=== PATIENT | female | born 1960 | race Caucasian/White ===

== ENCOUNTER 2025-01-23 12:42 | Outpatient (AMB) | payer OTHER, SELFPAY ==
--- NOTE | 2025-01-23 13:19 | MHC.PC.OV ---
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 On latuda, lamictal. Ongoing nausea no change in frequency. Takes tums as needed. Denies heartburn, reflux. No change in bowels Colonoscopy: Declines colonoscopy Mammo: says a little overdue Follows with Dr Karthik GEE CONSTITUTIONAL: Denies weight loss, fever and chills. HEENT: Denies changes in vision and hearing. RESPIRATORY: Denies SOB and cough. CV: Denies palpitations and CP GI: Denies abdominal pain, nausea, vomiting and diarrhea. : Denies dysuria and urinary frequency. MSK: Denies new myalgia and joint pain. SKIN: Denies rash and pruritus. NEUROLOGICAL: Denies headache PSYCHIATRIC: Denies recent changes in mood. PHYSICAL EXAM: GENERAL: Alert and oriented x 3. NAD EYES: EOMI. Anicteric. HENT: Moist mucous membranes. No scleral icterus. No cervical lymphadenopathy. LUNGS: Clear to auscultation bilaterally. CARDIOVASCULAR: Regular rate and rhythm. No murmur. No JVD. ABDOMEN: Soft, non-tender +bs EXTREMITIES: No edema. Non-tender. SKIN: No rashes or lesions. Warm. NEUROLOGIC: No focal neurological deficits. CN II-XII grossly intact PSYCHIATRIC: Cooperative. 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 1. Little interest or pleasure in doing things: not at all 2. Feeling down, depressed, or hopeless: not at all 3. Trouble falling or staying asleep, or sleeping too much: not at all 4. Feeling tired or having little energy: not at all 5. Poor appetite or overeating: not at all 6. Feeling bad about yourself - or that you are a failure or have let yourself or your family down: not at all 7. Trouble concentrating on things, such as reading the newspaper or watching television: not at all 8. Moving or speaking so slowly that other people could have noticed. Or the opposite - being so fidgety or restless that you have been moving around a lot more than usual: not at all 9. Thoughts that you would be better off or of hurting yourself in some way: not at all Total score: 0 Depression Screening Interpretation: Negative Depression Screening Done: Yes 34695 - PHQ-9 Billing: Yes Source: Developed by Drs. Dawson Abernathy, Rosario Mohmaud, Lencho Kerr and colleagues, with an educational javier from [employer]. Thrive Questionnaire Date Thrive assessed: 01/16/25 I am a: Patient What is your living situation today?: I have a steady place to live Within the past 12 months, did the food you bought not last and you didn't have the money to get more?: Never true Within the past 12 months, did you worry whether your food would run out before you got money to buy more?: Never true Do you have trouble paying for medicines?: No Do you have trouble getting transportation to medical appointments?: No Do you have trouble paying your heating and electricity bill?: No Do you have trouble taking care of your child, family member or friend?: No Do you have trouble with day-to-day activities such as bathing, preparing meals, shopping, managing finances, etc.?: No Are you currently unemployed and looking for a job?: No Are you interested in more education?: No Please select the resources that you would like help with: None Currently or been in a relationship where the following occur: No concerns reported THRIVE Score: 0 AUDIT C Alcohol Use Questionnaire (AUDIT-C) 1. How often do you have a drink containing alcohol?: Never Total Score: 0 NIEVES-7 AMB Questionnaire NIEVES-7 Feeling nervous, anxious, or on edge: 0 = Not at all Not being able to stop or control worryin = Not at all Worrying too much about different things: 0 = Not at all Trouble relaxin = Not at all Being so restless that it is hard to sit still: 0 = Not at all Becoming easily annoyed or irritable: 0 = Not at all Feeling afraid as if something awful might happen: 0 = Not at all Total NIEVES-7 score (0-4 normal; 5-9 mild; 10-14 moderate; 15-21 severe): 0 Source: Developed by Drs. Dawson Abernathy, Rosario Mohamud, Lencho Kerr and colleagues, with an educational javier from [employer]. Physical exam (Primary Care) Vital Signs: Last Vital Signs Pulse 57 01/23/25 13:30 Resp 12 01/23/25 13:30 BP 102/64 01/23/25 13:30 Pulse Ox 98 01/23/25 13:30 Oxygen Delivery Method Room Air 01/23/25 13:30 BMI result Body Mass Index 18.7 Tobacco/Smoking Status: Tobacco use Status e-Cigarette/Vaping Use Never Used 01/23/25 13:27 PHQ-9: PHQ-9 Score PHQ-9: Total score 0 01/23/25 13:27 Depression Screening Interpretation: Negative Thrive Assessment: Date of Thrive Assessment Date Thrive assessed 01/16/25 01/23/25 13:21 Currently or been in a relationship where the following occur: No concerns reported Coding Level of Care Code New Pt Level 4 (28213) Diagnoses Encounter to establish care Z76.89 Bipolar affective disorder, remission status unspecified F31.9 Active/Remission status: remission status unspecified Elevated cholesterol E78.00 Anxiety F41.9 Additional Codes PHQ-9 - 14258 - PHQ-9 Billing: Yes ([id number]) Assessment & Plan Assessment & Plan (1) Encounter to establish care: Code(s): Z76.89 - Persons encountering health services in other specified circumstances Category: Medical (2) Bipolar disorder: Code(s): F31.9 - Bipolar disorder, unspecified Category: Medical Qualifiers: Active/Remission status: remission status unspecified Qualified Code(s): F31.9 - Bipolar disorder, unspecified (3) Elevated cholesterol: Code(s): E78.00 - Pure hypercholesterolemia, unspecified Category: Medical (4) Anxiety: Code(s): F41.9 - Anxiety disorder, unspecified Category: Medical Plan 64 y/o to establish care past medical, surgical, social and family history reviewed Chronic medical conditions stable Labs ordered. Preventive UTD Orders: Orders Vitamin B12 and Folate 01/23/25 E78.00 - Pure hypercholesterolemia, unspecified, F31.9 - Bipolar disorder, unspecified, F41.9 - Anxiety disorder, unspecified TSH reflex Free T4 01/23/25 E78.00 - Pure hypercholesterolemia, unspecified, F31.9 - Bipolar disorder, unspecified, F41.9 - Anxiety disorder, unspecified Lyme IgG/IgM w/reflex to WB 01/23/25 E78.00 - Pure hypercholesterolemia, unspecified, F31.9 - Bipolar disorder, unspecified, F41.9 - Anxiety disorder, unspecified
[2025-01-23 13:30] VITALS: BP 102/64; PULSE 57; RESP 12; O2SAT 98; BMI 18.7
--- OUTSIDE RECORDS SUMMARY | 2025-01-23 15:17 | XMS_ITS | Referral Summary ---
Author Organization [facility] Address [address] [place] [address] Care Team Providers Care Sternman Name Role Phone Camille Goodman MD Primary Care Provider + [phone] Allergies No known active allergies Medications * This document contains information received from the source organization and may not represent a complete record from that organization. lamoTRIgine (LaMICtal) 100 mg tablet Take 200 mg by mouth 2 times a day. Active buPROPion SR (WELLBUTRIN SR) 200 mg tablet Take 250 mg by mouth once a day. Active lurasidone (LATUDA) 40 mg tablet Take 40 mg by mouth with evening meal. Active hydrOXYzine HCL (ATARAX) 25 mg tablet Take 25 mg by mouth 3 times a day as needed for itching. Active trihexyphenidyL (ARTANE) 5 mg tablet Take 5 mg by mouth 3 times a day as needed for tremors. Active melatonin 3 mg tablet Take 10 mg by mouth nightly. Active HERBAL DRUGS ORAL Take by mouth. Quiet Mind daily prn for anxiety Active docusate sodium (COLACE) 100 mg capsule Take 200 mg by mouth every night. Active docusate sodium (COLACE) 100 mg capsule Take 100 mg by mouth in the morning. Active Social History Tobacco Use Types Packs/Day Years Used Date Smoking Tobacco: Never Assessed Comments No Sex and Gender Information Value Date Recorded Sex Assigned at Not on file Legal Sex Female 7:46 PM EDT Gender Identity Not on file Sexual Orientation Not on file Last Filed Vital Signs Vital Sign Reading Time Taken Comments Blood Pressure 126/85 07/22/2022 10:50 AM EDT Pulse 81 07/22/2022 10:50 AM EDT Temperature 36.3 ??C (97.3 ??F) 07/22/2022 10:50 AM E DT Respiratory Rate 18 07/22/2022 10:50 AM EDT Oxygen Saturation 99% 07/22/2022 10:50 AM EDT Inhaled Oxygen Concentration - - Weight 56.7 kg (125 lb) 07/21/2022 8:07 PM EDT Height - - Body Mass Index - - Plan of Treatment Not on file Insurance [facility] on file Care Teams Sternman Relationship Specialty Start Date End Date Camille Goodman MD PCP - General 07/21/22
--- OUTSIDE RECORDS SUMMARY | 2025-01-23 15:17 | XMS_ITS | Clinical Summary ---
Author Organization [facility] Address [address] [place] [address] Care Team Providers Care Electric Tripper Machine Operator Name Role Phone Camille Goodman MD Primary Care Provider + [phone] Allergies No known active allergies Medications * [...] Mass Index - - Plan of Treatment Health Maintenance Due Date Last Done Comments Cervical Cancer Screening 1961 Cologuard 1961 Colon Cancer Screening 1961 Colonoscopy 1961 FOBT / Fit Test 1961 HIV Screening 1961 HPV and Pap Smear 1961 Pap Smear 1961 Sigmoidoscopy 1961 Pneumococcal Vaccine: 50+ Ye ars (1 of 1 - PCV) 2011 Zoster Vaccines (1 of 2) 2011 DTaP,Tdap,and Td Vaccines (2 - Td or Tdap) 07/23/2020 07/23/2010 COVID-19 Vaccine (1 - 2023-2 5 season) 2024 Alcohol/Substance Use Screening 10/18/2024 Influenza Vaccine (Season Ended) 2025 RSV Vaccine (60+ years old a nd patients) (1 - 1-dose 75+ series) 2036 Hepatitis B Vaccines Aged Out No long er eligible based on patient's age to complete this topic Insurance [facility] on file Care Teams Electric Tripper Machine Operator Relationship Specialty Start Date End Date Camille Goodman MD [facility] - General 07/21/22
--- OUTSIDE RECORDS SUMMARY | 2025-01-23 15:17 | XMS_ITS | Clinical Summary ---
Author Organization [address] [facility] Address [address] [place] [address] Phone Care Team Providers Care Toll Line Mechanic Name Role Phone Ursula Reed MD Primary Care Provider [phone] Allergies Active Allergy Reactions Criticality Noted Date Comments Benzocaine Rash 12/15/2021 Medications ondansetron (ZOFRAN) 4 mg tablet Take 1 Tablet by mouth every 8 hours as needed for Nausea for up to 30 doses. 4 Active buPROPion SR (WELLBUTRIN SR) 200 mg 12 hr tablet bupropion HCl SR 200 mg tablet,12 hr sustained-relea se TAKE 1 TABLET BY MOUTH EVERY DAY Active LAMOTRIGINE ORAL Take 100 mg of ampicillin by mouth. 1 PO QAM, 2 PO afternoon, 2 PO QHS Active lurasidone (LATUDA) 40 mg tablet Take by mouth. Activ e Active Problems Problem Noted Date Diagnosed Date GERD (gastroesophageal reflux disease) 2 Chronic nonintractable headache 12/15/2021 Overview (09/04/2024): Migraine, transfer notes. Immunizations Name Administration Dates Next Due Td Tetanus diptheria (Tdvax) 7yo and older 03/14 Tdap Tetanus diptheria acell ular pertussis (Boostrix; Adacel) 7yo and older 07/23/2010 Surgical History Surgery Date Site/Laterality Comments HYSTERECTOMY 03/18/2010 PROCEDURE: HISTORICAL HYSTERECTOMY; COMMENT: laparoscopic supracervical, had fibroids. ABDOMINAL SURGERY PROCEDURE: [place] UNLISTED PROCEDURE ABDOMEN PERITONEUM & OMENTUM; COMMENT: abdominoplasty OTHER SURGICAL HISTORY PROCEDURE: NV TONSILLECTOMY & ADENOIDECTOMY AGE 13/> BREAST SURGERY Bilateral PROCEDURE: [place] UNLISTED PROCEDURE BREAST; COMMENT: augmentation OTHER SURGICAL HISTORY Left PROCEDURE: HISTORY OTHER; COMMENT: Tenolysis of hand L thumb, Medical History Medical History Date Comments Chronic migraine without aura DX :Chronic migraine without aura; COMMENT: very seldom, previously seen by Dr. Ozuna Depression DX:Depression; C OMMENT: ? bipolar. On meds supporting this. Following with [facility]. Molly MAURO in [place] Urinary frequency 12/24/2021 DX:Urinary martin quency; COMMENT: and urgency Bipolar disorder DX:Bipolar diso rder (HCC) Family History Medical History Relation Name Comments Other: abdominal aneurysm Father br ain aneurysms x 3, Stroke No Known Problems Maternal Grandfather Uterine cancer Maternal Grandmother Heart attack Mother at 71, CAD , s/p CABG Other: pacemaker Paternal Grandfather No Known Problems Paternal Grandmother Relation Name Status Comments Father (Age 71) Maternal Grandfather Maternal Grandmother Mother (Age 71) Paternal Grandfather Paternal Grandmother Social History Tobacco Use Types Packs/Day Years Used Date Smoking Tobacco: Never Smokeless Tobacco: Never Alcohol Use Standard Drinks/Week Comments Not Currently 0 (1 standard drink = 0.6 oz pur e alcohol) Comments Unknown Sex and Gender Information Value Date Recorded Sex Assigned at Not on file Legal Sex Female 7:17 PM EST Gender Identity Not on file Sexual Orientation Not on file Obstetrics History Last Filed Vital Signs Vital Sign Reading Time Taken Comments Blood Pressure 119/75 02/04/2024 1:04 PM EDT Pulse 70 02/04/2024 1:04 PM EDT Temperature - - Respiratory Rate - - Oxygen Saturation - - Inhaled Oxygen Concentration - - Weight 56.7 kg (125 lb) 02/04/2024 1:04 PM EDT Height 167.6 cm (5' 6 ) 02/04/2024 1:04 PM EDT Body Mass Index 20.18 02/04/2024 1:04 PM EDT Plan of Treatment Health Maintenance Due Date Last Done Comments Breast Cancer Screening 1961 Pneumococcal Vaccine: 50+ Years (1 of 1 - PCV) 2011 Zoster Vaccines (1 of 2) 2011 RSV Immunization Adult Patients (1 - Risk 60-74 years 1-dose series) 2021 Colorectal Cancer Screening: Colonoscopy 09/27/2022 Depression Screening 09/27/2022 HIV Screening 09/27/2022 Social Influencers of Health Screening 09/27/2022 COVID-19 Vaccine (3 - 2023-2 5 season) 2024 04/23/2021, 04/02/2021 Cervical Cancer Screening: P ap Smear 09/21/2024 09/21/2021 Influenza Vaccine (Season Ended) 2025 Cholesterol Screening (Lipid Panel) 03/29/2028 03/29/2023 DTaP,Tdap,and Td Vaccines (3 - Td or Tdap) 03/14/2030 03/14/2020, 07/23/2010 Hepatitis C Screening Completed 03/29/2023 HIB Vaccines Aged Out No longer eligi ble based on patient's age to complete this topic HPV Vaccines Aged Out No longer eligi ble based on patient's age to complete this topic Hepatitis A Vaccines Aged Out No long er eligible based on patient's age to complete this topic Hepatitis B Vaccines Aged Out No long er eligible based on patient's age to complete this topic IPV Vaccines Aged Out No longer eligi ble based on patient's age to complete this topic MMR Vaccines Aged Out No longer eligi ble based on patient's age to complete this topic Meningococcal ACWY Vaccine Aged Out N o longer eligible based on patient's age to complete this topic Meningococcal B Vaccine Aged Out No l onger eligible based on patient's age to complete this topic Pneumococcal Vaccine: Pediatrics (0 to 5 Years) and At-Risk Patients (6 to 64 Years) Aged Out No longer eligible b ased on patient's age to complete this topic RSV Immunization Patients Under 20 months Aged Out No longer eligible b ased on patient's age to complete this topic Varicella Vaccines Aged Out No longer eligible based on patient's age to complete this topic Procedures Procedure Name Priority Date/Time Associated Diagnosis Comments HM HEPATITIS C SCREENING Routine 03/29/2023 LIPID PANEL Routine 03/29/2023 HM PAP SMEAR Routine 09/21/2021 from Last 3 Months or Most Recently Relevant to Health Maintenance Results * Hepatitis C Screening (03/29/2023) Hepatitis C Screening abstracted Historical Provider HEALTH MAINTENANCE Final Result * (ABNORMAL) Lipid panel (03/29/2023) Pathologist [facility] LDL/HDL Ratio 3 0 - 4 Triglycerides 54 0 - 150 mg/dL Cholesterol 255(A) 0 - 200 mg/dL HDL 85 >=40 mg/dL LDL Cholesterol 160(A) 0 - 100 mg/dL Blood Venous blood specimen / Unknown Historical Provider LAB BLOOD ORDERABLES Veronica l Result * Pap Smear (09/21/2021) Pap smear no interpretation , abstracted Historical Provider HEALTH MAINTENANCE Final Result from Last 3 Months or Most Recently Relevant to Health Maintenance Insurance [facility] [employer] Care Teams Toll Line Mechanic Relationship Specialty Start Date End Date Ursula Reed MD PCP - General 11/23/22
== END 2025-01-23 13:44 | disposition home or self-care (01) ==
LOC: HO.HMCFM 12:43
PROVIDERS: PCP Internal Medicine; Visit Provider Internal Medicine
DX: Z76.89 Persons encountering health services in other specified circumstances (principal); F31.9 Bipolar disorder, unspecified; E78.00 Pure hypercholesterolemia, unspecified; F41.9 Anxiety disorder, unspecified

== ENCOUNTER → 2025-01-23 12:42 | Outpatient (BNVA) | payer OTHER, SELFPAY | PROVIDERS: PCP Internal Medicine; Visit Provider Internal Medicine | DX: Z76.89 Persons encountering health services in other specified circumstances (principal); F31.9 Bipolar disorder, unspecified; E78.00 Pure hypercholesterolemia, unspecified; F41.9 Anxiety disorder, unspecified | CPT/HCPCS: 96127 ==

== ENCOUNTER 2025-01-23 13:46 | Outpatient (REF) | payer OTHER, SELFPAY ==
--- OUTSIDE RECORDS SUMMARY | 2025-01-23 16:51 | XMS_ITS | Clinical Summary ---
Author Organization [address] [facility] Address [address] [place] [address] Phone Care Team Providers Care Antenna Specialist Name Role Phone Ursula Reed MD Primary Care Provider [phone] Allergies Active Allergy Reactions Criticality Noted Date [...] laparoscopic supracervical, had fibroids. ABDOMINAL SURGERY PROCEDURE: [place] UNLISTED PROCEDURE ABDOMEN PERITONEUM & OMENTUM; COMMENT: abdominoplasty OTHER SURGICAL HISTORY PROCEDURE: CA TONSILLECTOMY & ADENOIDECTOMY AGE 13/> BREAST SURGERY Bilateral PROCEDURE: [place] UNLISTED PROCEDURE BREAST; COMMENT: augmentation OTHER SURGICAL [...] Result * (ABNORMAL) Lipid panel (03/29/2023) Pathologist [facility] LDL/HDL Ratio 3 0 - 4 Triglycerides [...] Most Recently Relevant to Health Maintenance Insurance [facility] [employer] Care Teams Antenna Specialist Relationship Specialty Start Date End Date Ursula Reed MD PCP - General 11/23/22
--- OUTSIDE RECORDS SUMMARY | 2025-01-23 16:51 | XMS_ITS | Clinical Summary ---
Author Organization [facility] Address [address] [place] [address] Care Team Providers Care Oil Lease Broker Name Role Phone Camille Goodman MD Primary Care Provider + [phone] Allergies No known active allergies Medications * [...] patient's age to complete this topic Insurance [facility] on file Care Teams Oil Lease Broker Relationship Specialty Start Date End Date Camille Goodman MD [facility] - General 07/21/22
--- OUTSIDE RECORDS SUMMARY | 2025-01-23 16:51 | XMS_ITS | Referral Summary ---
Author Organization [facility] Address [address] [place] [address] Care Team Providers Care Senior Application Security Consultant Name Role Phone Camille Goodman MD Primary Care Provider + [phone] Allergies No known active allergies Medications * [...] Plan of Treatment Not on file Insurance [facility] on file Care Teams Senior Application Security Consultant Relationship Specialty Start Date End Date Camille Goodman MD PCP - General 07/21/22
[2025-01-23 19:20] LABS: TSH reflex Free T4 0.96 uIU/mL (0.32-4.0)
[2025-01-23 19:34] LABS: Vitamin B12 668 pg/mL (200-900)
[2025-01-24 10:08] LABS: Lyme Abs Screen <0.90 index
== END 2025-01-23 13:47 | disposition home or self-care (01) ==
LOC: HO.WFDLDS 13:46
PROVIDERS: Visit Provider Internal Medicine
DX: F41.9 Anxiety disorder, unspecified (principal); F31.9 Bipolar disorder, unspecified; E78.00 Pure hypercholesterolemia, unspecified
CPT/HCPCS: 36415; 82607; 82746; 84443; 86617; 86618

== ENCOUNTER 2025-06-12 14:47 | Outpatient (AMB) | payer OTHER, SELFPAY ==
--- NOTE | 2025-06-12 14:56 | MHC.PC.OV ---
Vital Signs 06/12/25 15:01 Height 5 ft 6.54 in Weight 118 lb 6 oz BMI 18.8 BP 110/74 Blood Pressure Location Lt brachial Position Sitting Respiration 12 Pulse 62 Pulse Source Pulse Oximeter Temp 98.5 F Temp Source Oral Pulse Oximetry (%) 99 Oxygen Delivery Method Room Air Intake Visit Reasons: Lump on throat Intake Note: Lump on throat, left side, sxs one week. Senior Communications Engineer Required: No Allergies No Known Allergies Allergy (Verified 06/12/25 15:00) Tobacco use date assessed: 06/12/25 Dental Screening Dental Screen Date: 01/23/25 HPI HPI Comments History of Present Illness Details 64 year old female with a past medical history of bipolar disorder presenting for throat discomfort, left throat lump She reports swelling of the left neck associated with some discomfort swallowing for the past one week. she is able to tolerate solids, liquids. No fevers, chronic fatigue. Denies cough, ear pain, sinus congestion. Strep test is positive. There is a fairly large left neck LN Follows with staff psychologist at [facility]. On latuda, lamictal. Ongoing nausea no change in frequency. Takes tums as needed. Denies heartburn, reflux. No change in bowels Colonoscopy: Declines colonoscopy. Ok for cologuard Mammo: Follows with Dr Karthik GEE see HPI PHYSICAL EXAM: GENERAL: Alert and oriented x 3. NAD EYES: EOMI. Anicteric. HENT: Moist mucous membranes. No scleral icterus. Erythema of the oropharynx without exdudate. Large ant cervical LN, tender LUNGS: Clear to auscultation bilaterally. CARDIOVASCULAR: Regular rate and rhythm. No murmur. No JVD. ABDOMEN: Soft, non-tender +bs EXTREMITIES: No edema. Non-tender. SKIN: No rashes or lesions. Warm. NEUROLOGIC: No focal neurological deficits. CN II-XII grossly intact PSYCHIATRIC: Cooperative. Appropriate mood and affect [facility] Medical History Tenosynovitis of left hand Surgical History History of augmentation of both breasts H/O abdominoplasty History of tonsillectomy and adenoidectomy H/O: hysterectomy Family History Mother CAD (coronary artery disease) Hx of CABG Father Brain aneurysm Stroke Maternal Grandmother Uterine cancer Paternal Grandfather Pacemaker Maternal Uncle OCD (obsessive compulsive disorder) Other Substance abuse Social History Housing: House Patient Tobacco Use Status: Never used Tobacco e-Cigarette/Vaping Use: Never Used service: No Current occupational status: employed 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 Current occupational exposures/hazards: No Cognitive needs: No Hearing needs: No Vision needs: Yes (needs glasses) Questionnaire Thrive Questionnaire Date Thrive assessed: 01/16/25 I am a: Patient What is your living situation today?: I have a steady place to live Within the past 12 months, did the food you bought not last and you didn't have the money to get more?: Never true Within the past 12 months, did you worry whether your food would run out before you got money to buy more?: Never true Do you have trouble paying for medicines?: No Do you have trouble getting transportation to medical appointments?: No Do you have trouble paying your heating and electricity bill?: No Do you have trouble taking care of your child, family member or friend?: No Do you have trouble with day-to-day activities such as bathing, preparing meals, shopping, managing finances, etc.?: No Are you currently unemployed and looking for a job?: No Are you interested in more education?: No Please select the resources that you would like help with: None Currently or been in a relationship where the following occur: No concerns reported THRIVE Score: 0 AUDIT C Alcohol Use Questionnaire (AUDIT-C) 3. How often do you have six or more drinks on one occasion?: Never Total Score: 0 Physical exam (Primary Care) Vital Signs: Last Vital Signs Temp 98.5 F 06/12/25 15:01 Pulse 62 06/12/25 15:01 Resp 12 06/12/25 15:01 BP 110/74 06/12/25 15:01 Pulse Ox 99 06/12/25 15:01 Oxygen Delivery Method Room Air 06/12/25 15:01 BMI result Body Mass Index 18.8 Tobacco/Smoking Status: Tobacco use Status Tobacco use date assessed 06/12/25 06/12/25 15:07 Patient Tobacco Use Status Never used Tobacco 06/12/25 15:07 e-Cigarette/Vaping Use Never Used 06/12/25 14:57 Thrive Assessment: Date of Thrive Assessment Date Thrive assessed 01/16/25 06/12/25 14:57 Currently or been in a relationship where the following occur: No concerns reported Results AMB Rapid Strep AMB Rapid Strep Positive Last Edit by Emily Brasher CMA on 06/12/25 15:50 Results Reviewed Results Reviewed: Laboratory Last Values Strep Scn Rapid Clinic Positive 06/12/25 15:48 Coding Level of Care Code Est Pt Level 4 (23591) Diagnoses Cervical lymphadenopathy R59.0 Assessment & Plan Assessment & Plan (1) Cervical lymphadenopathy: Code(s): R59.0 - Localized enlarged lymph nodes Category: Medical Plan Strep positive with left neck LN-augmentin ordered,us ordered & labs ordered Orders: Orders Pathologist Review - CBC 06/12/25 R53.83 - Other fatigue, R59.0 - Localized enlarged lymph nodes Monotest 06/12/25 R53.83 - Other fatigue, R59.0 - Localized enlarged lymph nodes ABO RH Type 06/12/25 Z01.83 - Encounter for blood typing AMB Rapid Strep Screen 06/12/25 J02.9 - Acute pharyngitis, unspecified Complete Blood Count Auto Diff 06/12/25 R53.83 - Other fatigue, R59.0 - Localized enlarged lymph nodes Comprehensive Met. Panel 06/12/25 R53.83 - Other fatigue, R59.0 - Localized enlarged lymph nodes US soft tiss head and/or neck 06/12/25 R59.0 - Localized enlarged lymph nodes Lipid Panel 06/12/25 R59.0 - Localized enlarged lymph nodes Referrals Cologuard Test Z12.11 - Encounter for screening for malignant neoplasm of colon, Z12.12 - Encounter for screening for malignant neoplasm of rectum Neuropsychiatry Referral R41.3 - Other amnesia Medications: New amoxicillin-pot clavulanate 875-125 mg 1 tab PO BID 20 tabs 0RF amoxicillin-pot clavulanate 875-125 mg 1 tab PO BID 20 tabs 0RF
[2025-06-12 15:01] VITALS: BP 110/74; PULSE 62; RESP 12; TEMP 36.9; O2SAT 99; BMI 18.8
--- OUTSIDE RECORDS SUMMARY | 2025-06-12 15:40 | XMS_ITS | Clinical Summary ---
Author Organization [facility] Address [address] [place] [address] [place] [address] Phone Care Team Providers Care Car Trimmer Name Role Phone Israel Aguirre MD Primary Care Provider Unavai lable Allergies Active Allergy Reactions Criticality Noted Date Comments Benzoyl Peroxide-Skin Clnsr 24 Rash Low 12/11 Medications lamoTRIgine (LAMICTAL XR) 50 mg TR24 Take 25 mg by mouth 3 (three) times a day. Active buPROPion (WELLBUTRIN SR) 150 MG 12 hr tablet Take 150 mg by mouth 2 (two) times a day. Active SUMAtriptan (IMITREX) 25 MG tablet Take 25 mg by mouth every 2 (two) hours as needed for migraine. Active Social History Tobacco Use Types Packs/Day Years Used Date Smoking Tobacco: Never Alcohol Use Standard Drinks/Week Comments Not Asked 0 (1 standard drink = 0.6 oz pur e alcohol) Education Answer Date Recorded Are you interested in more education? Not on caro e 02/12/2023 Are you concerned about learning? Not on file 02/12/2023 No 02/12/2023 No 02/12/2023 Digital Access Answer Date Recorded No 03/15/2023 No 03/15/2023 No 03/15/2023 Reliable internet access at home? Not on file 03/15/2023 Device with a working camera? Not on file Intimate Partner Violence Answer Date R ecorded Are you denied basic needs s uch as food, clothing, or medical care? No 11/09/2024 In the past 12 months have y ou been in a relationship with a person who hurts, threatens, or tries to control you? No 11/09/2024 Are you denied basic needs s uch as food, clothing, or medical care? No 11/09/2024 In the past 12 months have y ou been in a relationship with a person who hurts, threatens, or tries to control you? No 11/09/2024 Comments Unknown Sex and Gender Information Value Date Recorded Sex Assigned at Choose not to disclose 10:47 PM EST Legal Sex Female 10:33 AM EDT Gender Identity Choose not to disclose 10:47 PM EST Sexual Orientation Don't know 11/09/2024 10 :47 PM EST Last Filed Vital Signs Vital Sign Reading Time Taken Comments Blood Pressure 120/83 11/10/2024 12:34 AM EST Pulse 72 11/10/2024 12:34 AM EST Temperature 36.4 C (97.5 F) 11/10/2024 12:34 AM EST Respiratory Rate 16 11/10/2024 12:34 AM EST Oxygen Saturation 95% 11/10/2024 12:34 AM EST Inhaled Oxygen Concentration - - Weight 55.3 kg (122 lb) 11/09/2024 9:27 PM EST Height 167.6 cm (5' 6 ) 11/09/2024 9:27 PM EST Body Mass Index 19.69 11/09/2024 9:27 PM EST Plan of Treatment Health Maintenance Due Date Last Done Comments Adult Td,Tdap Booster 1961 DEPRESSION SCREENING 1973 HEPATITIS C SCREENING 1979 HIV ONE-TIME SCREENING (18-6 5 YEARS) 1979 PAP SMEAR 1982 MAMMOGRAM 2001 COLOGUARD 2006 COLONOSCOPY 2006 COLORECTAL CANCER SCREENING 2006 FIT TEST 2006 FOBT 2006 SIGMOIDOSCOPY 2006 VIRTUAL COLONOSCOPY 2006 PNEUMOCOCCAL VACCINES (50+ years) (1 of 1 - PCV) 2011 ZOSTER VACCINES (1 of 2) 2011 COVID-19 VACCINE (3 - 2023-2 5 season) 2024 04/23/2021, 04/02/2021 LIPID PANEL 03/29/2028 03/29/2023 RSV VACCINE (1 - 1-dose 75+ series) 2036 SMOKING STATUS SCREENING (On ce After 26 Yrs) Completed 12/11/2015 HEPATITIS A VACCINES Aged Out No long er eligible based on patient's age to complete this topic HIB VACCINES Aged Out No longer eligi ble based on patient's age to complete this topic MENINGOCOCCAL VACCINES (ACWY) Aged Out No longer eligible based on patient's age to complete this topic MENINGOCOCCAL VACCINES (B) Aged Out N o longer eligible based on patient's age to complete this topic Medical Devices Not on file Insurance [id number] [employer] [facility] [employer] DIRECT [employer] [place] [address] [place] [address] DIRECT Care Teams Car Trimmer Relationship Specialty Start Date End Date Israel Aguirre MD PCP - General Family Medicine 07/05/15 Additional Source Comments The information contained in this document represents components of the legal health record. It is not the complete legal health record.[facility]
--- OUTSIDE RECORDS SUMMARY | 2025-06-12 15:40 | XMS_ITS | Clinical Summary ---
Author Organization [facility] Address [address] [place] [address] Care Team Providers Care Foot Caster Name Role Phone Camille Goodman MD Primary Care Provider + [phone] Allergies No known active allergies Medications * [...] 81 07/22/2022 10:50 AM EDT Temperature 36.3 C (97.3 F) 07/22/2022 10:50 AM EDT Respiratory Rate 18 07/22/2022 10:50 AM EDT Oxygen Saturation 99% 07/22/2022 10:50 AM EDT Inhaled Oxygen Concentration - - Weight 56.7 kg (125 lb) 07/21/2022 8:07 PM EDT Height - - Body Mass Index - - Plan of Treatment Health Maintenance Due Date Last Done Comments Cologuard 1961 Colon Cancer Screening 1961 Colonoscopy 1961 FOBT / Fit Test 1961 HIV Screening 1961 Sigmoidoscopy 1961 Pneumococcal Vaccine: 50+ Ye ars (1 of 1 - PCV) 2011 Zoster Vaccines (1 of 2) 2011 DTaP,Tdap,and Td Vaccines (2 - Td or Tdap) 07/23/2020 07/23/2010 COVID-19 Vaccine (1 - 2023-2 5 season) 2024 Alcohol/Substance Use Screening 10/18/2024 Influenza Vaccine (#1) 2025 RSV Vaccine (60+ years old a nd patients) (1 - 1-dose 75+ series) 2036 Hepatitis B Vaccines Aged Out No long er eligible based on patient's age to complete this topic Insurance on file Care Teams Foot Caster Relationship Specialty Start Date End Date Camille Goodman MD PCP - General 07/21/22
--- OUTSIDE RECORDS SUMMARY | 2025-06-12 15:40 | XMS_ITS | Clinical Summary ---
Author Organization [facility] Address [address] [place] [address] Phone Care Team Providers Care Refrigerator Cabinetmaker Name Role Phone Ursula Reed MD Primary Care Provider [phone] Allergies Active Allergy Reactions Criticality Noted Date [...] laparoscopic supracervical, had fibroids. ABDOMINAL SURGERY PROCEDURE: CT UNLISTED PROCEDURE ABDOMEN PERITONEUM & OMENTUM; COMMENT: abdominoplasty OTHER SURGICAL HISTORY PROCEDURE: CT TONSILLECTOMY & ADENOIDECTOMY AGE 13/> BREAST SURGERY Bilateral PROCEDURE: CT UNLISTED PROCEDURE BREAST; COMMENT: augmentation OTHER SURGICAL [...] martin quency; COMMENT: and urgency Bipolar disorder (CMS/HCC V2 4, CMS/HCC V28) DX:Bipolar disorder (HCC) Family History Medical History Relation Name [...] 2011 Zoster Vaccines (1 of 2) 2011 Colorectal Cancer Screening: Colonoscopy 09/27/2022 HIV Screening 09/27/2022 Social Influencers of Health Screening 09/27/2022 COVID-19 Vaccine (3 - 2023-2 5 season) 2024 04/23/2021, 04/02/2021 Cervical Cancer Screening: P ap Smear 09/21/2024 09/21/2021 Depression Screening 10/18/2024 Influenza Vaccine (#1) 2025 Cholesterol Screening (Lipid Panel) 03/29/2028 03/29/2023 DTaP,Tdap,and Td Vaccines (3 - Td or Tdap) 03/14/2030 03/14/2020, 07/23/2010 RSV Immunization Adult Patients (1 - 1-dose 75+ series) 2036 Hepatitis C Screening Completed 03/29/2023 HIB Vaccines [...] Recently Relevant to Health Maintenance Results * Hm Hepatitis C Screening (03/29/2023) Hepatitis C Screening abstracted Historical Provider HEALTH MAINTENANCE Final Result * (ABNORMAL) Lipid panel (03/29/2023) [facility] LDL/HDL Ratio 3 0 - 4 Triglycerides 54 0 - 150 mg/dL Cholesterol 255(A) 0 - 200 mg/dL HDL 85 >=40 mg/dL LDL Cholesterol 160(A) 0 - 100 mg/dL Blood Venous blood specimen / Unknown Historical Provider MD LAB BLOOD ORDERABLES Veronica l Result * Pap Smear (09/21/2021) Pathologist [facility] Pap smear no interpretation , abstracted [facility] Provider HEALTH MAINTENANCE Final Result from Last 3 Months or Most Recently Relevant to Health Maintenance Insurance [facility] [employer] Care Teams Refrigerator Cabinetmaker Relationship Specialty Start Date End Date Ursula Reed MD PCP - General 11/23/22
== END 2025-06-12 15:50 | disposition home or self-care (01) ==
LOC: HO.HMCFM 14:48
PROVIDERS: PCP Internal Medicine; Visit Provider Internal Medicine
DX: R59.0 Localized enlarged lymph nodes (principal)

== ENCOUNTER → 2025-06-12 14:47 | Outpatient (BNVA) | payer OTHER, SELFPAY | PROVIDERS: PCP Internal Medicine; Visit Provider Internal Medicine | DX: R59.0 Localized enlarged lymph nodes (principal); R07.0 Pain in throat | CPT/HCPCS: 87880 ==

== ENCOUNTER 2025-06-14 12:46 | Outpatient (REF) | payer OTHER, SELFPAY ==
--- OUTSIDE RECORDS SUMMARY | 2025-06-14 13:23 | XMS_ITS | Clinical Summary ---
Author Organization [facility] Address [address] [place] [address] Care Team Providers Care Carpet Loom Fixer Name Role Phone Camille Goodman MD Primary Care Provider + [phone] Allergies No known active allergies Medications * [...] this topic Insurance on file Care Teams Carpet Loom Fixer Relationship Specialty Start Date End Date Camille Goodman MD PCP - General 07/21/22
--- OUTSIDE RECORDS SUMMARY | 2025-06-14 13:23 | XMS_ITS | Clinical Summary ---
Author Organization [facility] Address [address] [place] [address] [place] [address] Phone Care Team Providers Care Dye Can Operator Name Role Phone Israel Aguirre MD Primary [...] topic Medical Devices Not on file Insurance [employer] [place] [address] [place] [address] DIRECT Care Teams Dye Can Operator Relationship Specialty Start Date End Date Israel Aguirre MD PCP - General Family Medicine 07/05/15 Additional Source Comments The information contained in this document represents components of the legal health record. It is not the complete legal health record.[facility]
--- OUTSIDE RECORDS SUMMARY | 2025-06-14 13:23 | XMS_ITS | Clinical Summary ---
Author Organization [facility] Address [address] [place] [address] Phone Care Team Providers Care Animal Scientist Name Role Phone Ursula Reed MD Primary Care Provider [phone] Allergies Active Allergy Reactions Criticality Noted Date [...] laparoscopic supracervical, had fibroids. ABDOMINAL SURGERY PROCEDURE: [place] UNLISTED PROCEDURE ABDOMEN PERITONEUM & OMENTUM; COMMENT: abdominoplasty OTHER SURGICAL HISTORY PROCEDURE: [place] TONSILLECTOMY & ADENOIDECTOMY AGE 13/> BREAST SURGERY Bilateral PROCEDURE: [place] UNLISTED PROCEDURE BREAST; COMMENT: augmentation OTHER SURGICAL [...] Final Result * (ABNORMAL) Lipid panel (03/29/2023) [facility] LDL/HDL Ratio 3 0 - 4 Triglycerides 54 0 - 150 mg/dL Cholesterol 255(A) 0 - 200 mg/dL HDL 85 >=40 mg/dL LDL Cholesterol 160(A) 0 - 100 mg/dL Blood Venous blood specimen / Unknown Historical Provider MD LAB BLOOD ORDERABLES Veronica l Result * Pap Smear (09/21/2021) Pathologist [facility] Pap smear no interpretation , abstracted [facility] Provider HEALTH MAINTENANCE Final Result from Last 3 Months or Most Recently Relevant to Health Maintenance Insurance [facility] [employer] PLANS Care Teams Animal Scientist Relationship Specialty Start Date End Date Ursula Reed MD PCP - General 11/23/22
[2025-06-14 14:32] LABS: MANUAL DIFF FLAG NO
[2025-06-14 14:35] LABS: Hematocrit 41.3 % (37.0-47.0); Hemoglobin 13.8 g/dl (12.0-16.0); Imm Gran Abs Auto 0.01 X10*3/uL (0.00-0.03); Imm Gran Pct Auto 0.2 % (0.0-0.4); Lymphocytes Absolute Auto 1.6 X10*3/uL (1.2-4.9); Mean Corpuscular HGB Conc 33.4 g/dl (31.0-35.0); Mean Corpuscular Hemoglobin 29.0 pg (27.0-33.0); Mean Corpuscular Volume 86.8 fL (80.0-98.0); NRBC Abs Auto 0.000 X10*3/uL (0.0-0.012); NRBC Pct Auto 0.0 /100WBC (0.0-0.2); Platelet Count 178 X10*3/uL (160-400); Red Blood Count 4.76 X10*6/uL (4.20-5.50); White Blood Count 4.4 X10*3/uL (4.8-10.8)
[2025-06-14 16:04] LABS: Alanine Aminotransferase 31 U/L (0-31); Albumin Level 4.5 g/dL (3.5-5.0); Alkaline Phosphatase 55 U/L (39-117); Anion Gap 12 (12-20); Aspartate Amino Transferase 31 U/L (5-31); Blood Urea Nitrogen 11 mg/dL (9-16); Calcium 9.2 mg/dL (8.4-10.2); Carbon Dioxide 26 mmol/L (22-29); Chloride 104 mmol/L (96-108); Cholesterol 246 mg/dL (<200); Estimated Glomerular Filt Rate > 60; HDL Cholesterol 74 mg/dL (>40); Potassium 4.2 mmol/L (3.3-5.1); Sodium 138 mmol/L (135-145); Total Protein 7.1 g/dL (6.5-8.0); Triglycerides 83 mg/dL (<150)
== END 2025-06-14 12:47 | disposition home or self-care (01) ==
LOC: HO.WFDLDS 12:46
PROVIDERS: Visit Provider Internal Medicine
DX: Z01.83 Encounter for blood typing (principal); Z01.84 Encounter for antibody response examination; R59.0 Localized enlarged lymph nodes; R53.83 Other fatigue; Z13.6 Encounter for screening for cardiovascular disorders
CPT/HCPCS: 80053; 80061; 85025; 86308; 86900; 86901

== ENCOUNTER 2025-07-30 08:43 | Outpatient (REF) | payer OTHER, SELFPAY ==
--- NOTE | ~2025-07-30 | US_ITS ---
EXAMINATION: US SOFT TISSUE HEAD AND/OR NECK CLINICAL INFORMATION: Left cervical lymphadenopathy.. COMPARISON: None available. TECHNIQUE: Linear transducer benitez-scale and color Doppler examination with attention to the region of the left neck as directed by the patient in the region of palpable concern. FINDINGS: No pathologic lymph node, mass, or abnormal fluid collection is present. There is a small normal-appearing left level 2 lymph node present measuring 0.5 x 0.3 x 0.6 cm, with preserved fatty hilum and normal arielle morphology. Incidentally noted are small thyroid nodules and/or colloid cysts within the thyroid gland. None of these measure over 1.0 cm. Also incidentally noted is mild to moderate carotid bulb calcification on the left. US/US soft tiss head and/or neck IMPRESSION: 1. No abnormal lymph nodes, masses, or abnormal fluid collections in the neck. 2. Subcentimeter thyroid nodules present. 3. Mild to moderate left carotid bulb calcification. Electronically signed by: Chencho Diaz MD 07/31/2025 08:33 AM EDT
--- OUTSIDE RECORDS SUMMARY | 2025-07-30 08:45 | XMS_ITS | Clinical Summary ---
Author Organization [facility] Address [address] [place] [address] [place] [phone] Phone Care Team Providers Care Pss Delivery Professional Name Role Phone Israel Aguirre MD Primary [...] 2011 ZOSTER VACCINES (1 of 2) 2011 INFLUENZA VACCINE (#1) 2025 COVID-19 VACCINE (3 - 2024-2 6 season) 2025 04/23/2021, 04/02/2021 LIPID PANEL 03/29/2028 03/29/2023 RSV [...] Devices Not on file Insurance [employer] DIRECT [employer] DIRECT [employer] [place] [address] DIRECT Care Teams Pss Delivery Professional Relationship Specialty Start Date End Date Israel Aguirre MD PCP - General Family Medicine 07/05/15 Additional Source Comments The information contained in this document represents components of the legal health record. It is not the complete legal health record.[facility]
--- OUTSIDE RECORDS SUMMARY | 2025-07-30 08:46 | XMS_ITS | Clinical Summary ---
Author Organization [facility] Address [address] [place] [address] Phone Care Team Providers Care Glazier Artist Name Role Phone Ursula Reed MD Primary Care Provider [phone] Allergies Active Allergy Reactions Criticality Noted Date [...] 12/15/2021 Overview (09/04/2024): Migraine, transfer notes. Immunizations Immunization Administration Dates Next Due Td Tetanus diptheria (Tdvax) 7yo and older 03/14 Tdap Tetanus diptheria acell ular pertussis (Boostrix; Adacel) 7yo and older 07/23/2010 Surgical History Surgery Date Site/Laterality Comments HYSTERECTOMY 03/18/2010 PROCEDURE: HISTORICAL HYSTERECTOMY; COMMENT: laparoscopic supracervical, had fibroids. ABDOMINAL SURGERY PROCEDURE: [place] UNLISTED PROCEDURE ABDOMEN PERITONEUM & OMENTUM; COMMENT: abdominoplasty OTHER SURGICAL HISTORY PROCEDURE: IN TONSILLECTOMY & ADENOIDECTOMY AGE 13/> BREAST SURGERY Bilateral PROCEDURE: IN UNLISTED PROCEDURE BREAST; COMMENT: augmentation OTHER SURGICAL [...] Last Done Comments Breast Cancer Screening 1961 Colorectal Cancer Screening: Colonoscopy 1961 Pneumococcal Vaccine: 50+ Years (1 of 1 - PCV) 2011 Zoster Vaccines (1 of 2) 2011 HIV Screening 09/27/2022 Social Influencers of Health Screening 09/27/2022 Cervical Cancer Screening: P ap Smear 09/21/2024 09/21/2021 Depression Screening 10/18/2024 COVID-19 Vaccine (3 - 2024-2 6 season) 2025 04/23/2021, 04/02/2021 Influenza Vaccine (#1) 2025 Cholesterol Screening (Lipid [...] Final Result * (ABNORMAL) Lipid panel (03/29/2023) [facility] LDL/HDL Ratio 3 0 - 4 Triglycerides 54 0 - 150 mg/dL Cholesterol 255(A) 0 - 200 mg/dL HDL 85 >=40 mg/dL LDL Cholesterol 160(A) 0 - 100 mg/dL Blood Venous blood specimen / Unknown Historical Provider MD LAB BLOOD ORDERABLES Veronica l Result * Pap Smear (09/21/2021) Pathologist [facility] Pap smear no interpretation , abstracted [facility] Provider HEALTH MAINTENANCE Final Result from Last 3 Months or Most Recently Relevant to Health Maintenance Insurance [facility] [employer] PL[employer] Care Teams Glazier Artist Relationship Specialty Start Date End Date Ursula Reed MD PCP - General 11/23/22
--- OUTSIDE RECORDS SUMMARY | 2025-07-30 08:46 | XMS_ITS | Clinical Summary ---
Author Organization [facility] Address [address] [place] [address] Care Team Providers Care Snow Fence Erector Name Role Phone Camille Goodman MD Primary Care Provider + [phone] Allergies No known active allergies Medications * [...] (2 - Td or Tdap) 07/23/2020 07/23/2010 Alcohol/Substance Use Screening 10/18/2024 COVID-19 Vaccine (1 - 2023-2 5 season) 2025 Influenza Vaccine (#1) 2025 RSV Vaccine (60+ years old a nd patients) (1 - 1-dose 75+ series) 2036 Hepatitis B Vaccines Aged Out No long er eligible based on patient's age to complete this topic Insurance on file Care Teams Snow Fence Erector Relationship Specialty Start Date End Date Camille Goodman MD PCP - General 07/21/22
== END 2025-07-30 08:44 | disposition home or self-care (01) ==
LOC: HO.US 08:43
PROVIDERS: PCP Internal Medicine; Visit Provider Internal Medicine
DX: R59.0 Localized enlarged lymph nodes (principal)
CPT/HCPCS: 76536

== ENCOUNTER → 2025-07-30 08:44 | Outpatient (BNV) | payer OTHER, SELFPAY | PROVIDERS: PCP Internal Medicine; Visit Provider Radiology Diagnostic Radiology | DX: E04.2 Nontoxic multinodular goiter (principal); I65.22 Occlusion and stenosis of left carotid artery | CPT/HCPCS: 76536 ==

== ENCOUNTER 2025-10-10 14:21 | Outpatient (REF) | payer OTHER, SELFPAY | END 2025-10-10 14:22 | disposition home or self-care (01) | LOC: HO.LNP 14:21 | PROVIDERS: PCP Internal Medicine; Visit Provider Nurse Practitioner Family | DX: R11.0 Nausea (principal); R12 Heartburn | CPT/HCPCS: 83013; 99202 ==

== ENCOUNTER → 2025-10-10 14:21 | Outpatient (AMB) | payer OTHER, SELFPAY ==
--- OUTSIDE RECORDS SUMMARY | 2025-10-10 14:24 | XMS_ITS | Data Portability ---
Author Organization [place] - [facility], Allergy Address [address] [address] Care Team Providers Care Software Application Tester Name Role Phone RupalMANUEL LEAL Primary Care Provider Assessment Encounter Date Assessment Date Assessment LastModified by Organization Details LastModified Time 08/30/2025 08/30/2025 Assessment: - Chronic sore throat, left-sided and midline, likely multifactorial. - Small cyst on the right epiglottis, benign. - Gastrointestinal symptoms potentially contributing to chronic sore throat. Plan: The patient was reassured that her throat examination revealed no abnormalities aside from a benign cyst on the epiglottis. I suspect her gastrointestinal symptoms may be contributing to her chronic sore throat. I encouraged her to follow up with her gastrointestinal specialist for further evaluation and management. I will ensure that the ultrasound results from [facility] are added to her chart once received. No specific ENT interventions are recommended at this time. Patient education was provided regarding the benign nature of the cyst and the importance of addressing her gastrointestinal concerns. She was advised to continue monitoring her symptoms and to follow up as needed. [email or web address] Not available 08/30/2025 10:31:06 Plan of Treatment Reminders Order Date Submit Date Provider Last Modified By Organization Details Last Modified Time Details Appointments None record ed. Lab None record ed. Referral None record ed. Procedures None record ed. Surgeries None record ed. Imaging None record ed. Medication Orders None record ed. Patient TargetsNo targets recorded. Patient Instructions Encounter Date Encounter Id Patient Instructions Last Modified By Organization Details Last Modified Time 08/30/2025 [id number] - Follow up with gastrointestinal specialist for evaluation and management. - Monitor symptoms and report any changes. - Ensure ultrasound results are added to the chart. [email or web address] Not available 08/30/2025 10:31:06 Please note: Par ts of this encounter note have been generated by AI based on audio conversation. Patient consent was required prior to utilizing this technology. Content review was required prior to finalizing the note. [email or web address] Not available 08/30/2025 10:31:06 Reason for Referral None Reported. Problems Name Problem SNOMED Code Status Onset Date Resolution Date Notes Provider Name and Address Organization Details Recorded Time Chronic sore throat 374654031 Active 2024 DAMON BROTHERS MD [address] [place] [address],[place] [address], [place], [address], [place] - [facility] 10:30:50 Laryngopharyng eal reflux 514386760 Active 2024 DAMON BROTHERS MD [address] [place] [address], [place], [address], [place] [facility] 10:30:53 Problem Notes None recorded. Procedures Surgical History Date Name Laterality Status Provider Name and Address Organization Details Recorded Time 08/30/2025 Nasopharyn goscopy_DP completed DAMON BROTHERS MD [address] [place] [address], [place], [address], [facility] - [facility] 08/30/2025 10:32:01 Imaging Results None recorded. Procedure Notes None recorded. Medical Equipment None Reported. Allergies Allergen ID Allergen Name Allergen Category Reaction Reaction Severity Criticality Documentation Date Start Date Code Code System Note Provider Name and Address Organization Details Recorded Time 818485 benzoyl peroxide / sulfur medicatio n Not available Not available Not available 09/03/2025 51796 3 RxNorm Not Available [employer] - prod 20:02:37 815909 benzocain e medicatio n rash Not available Not available 09/03/20252021 1399 RxNorm Not Available [employer] - prod 20:07:34 Medications Name Sig Start Date Stop Date Status Note LastModified by Organization Details LastModified Time alprazolam 1 mg tablet TAKE 1 TABLET BY MOUTH ONCE active Not Available Not Available No t Available alendronate 70 mg tablet TAKE 1 TABLET BY MOUTH EVERY WEEK active Not Available Not Available No t Available sulfacetami de sodium (acne) 10 % lotion (suspension ) APPLY ONCE DAILY FOR ROSACEA ALTERNATI NG WITH METROGEL. active Not Available Not Available No t Available lamotrigine 25 mg tablet TAKE 1 TABLET BY MOUTH EVERY DAY active Not Available Not Available No t Available propranolol 10 mg tablet TAKE 1 TABLET BY MOUTH TWICE A DAY active Not Available Not Available No t Available amoxicillin 875 mg tablet TAKE 1 TABLET BY MOUTH TWICE A DAY FOR 7 DAYS 08/27 completed Not Available Not Available Not Available hydroxyzine HCl 25 mg tablet TAKE 1 TABLET BY MOUTH EVERY DAY AT BEDTIME NEEDED active Not Available Not Available No t Available clobetasol 0.05 % topical ointment TOPICALLY DAILY FOR 2 WEEKS THEN 2 TIMES A WEEK. APPLY A 1/4 BEAD . active Not Available Not Available No t Available estradiol 0.01% (0.1 mg/gram) vaginal cream USE ENCLOSED APPLICATO R DIRECTED. 0.1 MG NIGHTLY X2 WEEKS THEN 2 TIMES WEEKLY. WASH APPLICATO R active Not Available Not Available No t Available hydroxyzine HCl 10 mg tablet TAKE 1 TABLET BY MOUTH TWICE A DAY NEEDED FOR ANXIETY active Not Available Not Available No t Available lamotrigine 100 mg tablet TAKE 2 TABLETS BY MOUTH TWICE A DAY active Not Available Not Available No t Available amoxicillin 875 mg-potassiu m clavulanate 125 mg tablet TAKE 1 TABLET BY MOUTH TWICE A DAY 08/27 completed Not Available Not Available Not Available bupropion HCl XL 150 mg 24 hr tablet, extended release TAKE 1 TABLET BY MOUTH EVERY MORNING active Not Available Not Available No t Available metronidazo le 1 % topical gel APPLY EVERY OTHER DAY AT BEDTIME TO FACE FOR ROSACEA. active Not Available Not Available No t Available chlorhexidi ne gluconate 0.12 % mouthwash RINSE WITH 15 ML, HOLD FOR 30 SECONDS AND EXPECTORA TE TWICE A DAY FOR 7 DAYS START DAY AFTER SURGERY 08/30 completed Not Available Not Available Not Available lurasidone 80 mg tablet TAKE 1 TABLET BY MOUTH DAILY WITH A MEAL active Not Available Not Available No t Available lurasidone 60 mg tablet TAKE 1 TABLET BY MOUTH EVERY DAY active Not Available Not Available No t Available Vitals Date Recorded Body height Body mass index (BMI) Body weight Provider Name and Address Organization Details Last Updated DateTime 08/30/2025 167.64 cm 20.2 kg/m2 90413.05 g RONALDO HADLEY [place] - [facility] 08/30/2025 10:13:38 Social History None recorded. Functional Status None recorded. Mental Status None recorded. Family History Nothing Reported. Medical History No medical history recorded. Gynecological HistoryNo gynecological history recorded. Obstetrics History GPAL:G 0 P 0 0 0 0 Past Encounters Encounter ID Performer Location Encounter Start Date Encounter Closed Date Diagnosis/Indication Diagnosis SNOMED-CT Code Diagnosis ICD10 Code Diagnosis IMO Codes Diagnosis Note [id number] DAMON BROTHERS MD [facility] [address] [address] 08/30/2025 09:56:38 08/30/2025 10:31:58 Chronic sore throat 942635604 J31.2 2579 Laryngopha ryngeal reflux 122415781 K21.9 3477427 Health Concerns Section Related Observation LastModified by Organization Detai ls LastModified Time None Recorded Concern Status LastModified by Organization Details LastModified Time None Recorded Advance Directives Directive None Recorded Payers Insurance Date Sequence Insurance Name Policy Number Policy Willis Covered Member ID Willis Member ID Guarantor Name 08/30/2025 1 [facility] [id number] Roseanna Mena [id number] Roseanna Mena Notes Date Note Type Note Provider Name and Address Organization Details Recorded Time 08/30/2025 text/html sore throat Roseanna Mena is a 65-year-old female who presents with a chronic sore throat primarily affecting the left side and extending to the middle. She reports that the sore throat initially began approximately five years ago, with a significant worsening last month. She was diagnosed with strep throat in July and treated with antibiotics, which did not resolve her symptoms. A subsequent throat swab was negative for strep, and her sore throat has persisted. She denies difficulty swallowing, voice changes, coughing up blood, smoking history, neck surgery, injuries, or dental infections. She has tried Tums and other remedies without improvement. She also reports concurrent gastrointestinal symptoms, including nausea and a sensation of fullness extending into the neck area, which she suspects may be related to her sore throat. An ultrasound performed a few weeks ago was reviewed by her primary care provider and deemed non-concerning. DAMON BROTHERS MD [address] [place] [address], [place], [address], [facility] - [facility] 08/30/2025 10:32:16 OBGyn Episode No OBEpisode recorded.
--- OUTSIDE RECORDS SUMMARY | 2025-10-10 14:24 | XMS_ITS | Continuity of Care Document ---
Author Organization [place] - [facility], [facility] Address [address] [place] [address] Care Team Providers Care Manager Of It Name Role Phone RupalMANUEL LEAL Primary Care Provider [phone] Assessment Encounter Date Assessment Date Assessment LastModified [...] By Organization Details Last Modified Time 08/30/2025 [id number] - Follow up with gastrointestinal specialist for [...] Organization Details Recorded Time Chronic sore throat 180168892 Active 2024 DAMON BROTHERS MD [address] [place] [address],[place] [address], [place], [phone], [facility] - [facility] 10:30:50 Laryngopharyng eal reflux 817232080 Active 2024 DAMON BROTHERS MD [address] [place] [address],[place] [address], [place], [address], [facility] 10:30:53 Problem Notes None recorded. Procedures Surgical History Date Name Laterality Status Provider Name and Address Organization Details Recorded Time 08/30/2025 Nasopharyn goscopy_DP completed DAMON BROTHERS MD [address] [place] [address], [place], [address], [facility] 08/30/2025 10:32:01 Imaging Results None recorded. Procedure Notes None recorded. Medical Equipment None Reported. Allergies Allergen ID Allergen Name Allergen Category Reaction Reaction Severity Criticality Documentation Date Start Date Code Code System Note Provider Name and Address Organization Details Recorded Time 515831 benzoyl peroxide / sulfur medicatio n Not available Not available Not available 09/03/2025 60886 3 RxNorm Not Available [employer] - prod 20:02:37 018453 benzocain e medicatio n rash Not available Not available 09/03/20252021 1399 RxNorm Not Available [employer] - prod 20:07:34 Medications Name [...] Not Available No t Available amoxicillin 875 mg-zac goodman clavulanate 125 mg tablet TAKE 1 TABLET [...] Updated DateTime 08/30/2025 167.64 cm 20.2 kg/m2 33107.05 g RONALDO HADLEY [place] - [facility] 08/30/2025 10:13:38 Social History None recorded. Functional Status None recorded. Mental Status None recorded. Family History Nothing Reported. Medical History No medical history recorded. Gynecological HistoryNo gynecological history recorded. Obstetrics History GPAL:G 0 P 0 0 0 0 Past Encounters Encounter ID Performer Location Encounter Start Date Encounter Closed Date Diagnosis/Indication Diagnosis SNOMED-CT Code Diagnosis ICD10 Code Diagnosis IMO Codes Diagnosis Note [id number] DAMON BROTHERS MD [facility] [address] [address] 08/30/2025 09:56:38 08/30/2025 10:31:58 Chronic sore throat 412596106 J31.2 2579 Laryngopha ryngeal reflux 255654817 K21.9 0151116 Health Concerns Section Related Observation LastModified by Organization Detai ls LastModified Time None Recorded Concern Status LastModified by Organization Details LastModified Time None Recorded Payers Encounter Date Sequence Insurance Name Policy Number Policy Willis Covered Member ID Willis Member ID Guarantor Name 08/30/2025 1 [facility] [id number] Roseanna Mena [id number] 1 Roseanna Mena Notes Date Note Type [...] and deemed non-concerning. DAMON BROTHERS MD [address] [place] [address], [place], [address], [facility] - [facility] 08/30/2025 10:32:16 OBGyn Episode No OBEpisode recorded.
--- OUTSIDE RECORDS SUMMARY | 2025-10-10 14:24 | XMS_ITS | Clinical Summary ---
Author Organization [facility] Address [address] [place] [address] [place] [address] Phone Care Team Providers Care Mechanical Design Drafter Name Role Phone Israel Aguirre MD Primary [...] at Not on file Legal Sex Female 10:33 AM EDT Gender [...] Devices Not on file Insurance [employer] [place] [address] [id number] DIRECT Care Teams Mechanical Design Drafter Relationship Specialty Start Date End Date Israel Aguirre MD PCP - General Family Medicine 07/05/15 Additional Source Comments The information contained in this document represents components of the legal health record. It is not the complete legal health record.[facility]
--- OUTSIDE RECORDS SUMMARY | 2025-10-10 14:24 | XMS_ITS | Clinical Summary ---
Author Organization [facility] Address [address] [place] [address] Care Team Providers Care Custom Furrier Name Role Phone Camille Goodman MD Primary Care Provider + [phone] Allergies No known active allergies Medications * [...] Smear 1961 Pap Smear 1961 Sigmoidoscopy 1961 Mammogram 2001 Pneumococcal Vaccine: 50+ Ye ars (1 of 1 - PCV) 2011 Zoster Vaccines (1 of 2) 2011 DTaP,Tdap,and Td Vaccines (2 - Td or Tdap) 07/23/2020 07/23/2010 Alcohol/Substance Use Screening 10/18/2024 Influenza Vaccine (#1) 2025 COVID-19 Vaccine (1 - 2024-2 6 season) 2025 RSV Vaccine (60+ years old a nd patients) (1 - 1-dose 75+ series) 2036 Hepatitis B Vaccines Aged Out No long er eligible based on patient's age to complete this topic Insurance [facility] on file Care Teams Custom Furrier Relationship Specialty Start Date End Date Camille Goodman MD [facility] - General 07/21/22
--- OUTSIDE RECORDS SUMMARY | 2025-10-10 14:24 | XMS_ITS | Clinical Summary ---
Author Organization [address] [facility] Address [address] [place] [address] Phone Care Team Providers Care Non Morse Intercept Technician Name Role Phone Ursula Reed MD Primary Care Provider [phone] Allergies Active Allergy Reactions Criticality Noted Date [...] laparoscopic supracervical, had fibroids. ABDOMINAL SURGERY PROCEDURE: RI UNLISTED PROCEDURE ABDOMEN PERITONEUM & OMENTUM; COMMENT: abdominoplasty OTHER SURGICAL HISTORY PROCEDURE: RI TONSILLECTOMY & ADENOIDECTOMY AGE 13/> BREAST SURGERY Bilateral PROCEDURE: RI UNLISTED PROCEDURE BREAST; COMMENT: augmentation OTHER SURGICAL [...] Results * Hm Hepatitis C Screening (03/29/2023) Pathologist [facility] Hepatitis C Screening abstracted Historical Provider HEALTH MAINTENANCE Final Result * (ABNORMAL) Lipid panel (03/29/2023) [facility] LDL/HDL Ratio 3 0 - 4 Triglycerides 54 0 - 150 mg/dL Cholesterol 255(A) 0 - 200 mg/dL HDL 85 >=40 mg/dL LDL Cholesterol 160(A) 0 - 100 mg/dL Blood Venous blood specimen / Unknown [facility] Provider LAB BLOOD ORDERABLES Veronica l Result * Pap Smear (09/21/2021) Pathologist [facility] Pap smear no interpretation , abstracted [facility] Provider HEALTH MAINTENANCE Final Result from Last 3 Months or Most Recently Relevant to Health Maintenance Insurance [facility] [employer] Care Teams Non Morse Intercept Technician Relationship Specialty Start Date End Date Ursula Reed MD PCP - General 11/23/22
--- NOTE | 2025-10-10 14:39 | MHC.OFFVIS ---
Vital Signs 10/10/25 14:47 Height 5 ft 6 in Weight 120 lb BMI 19.4 BP 86/57 L Blood Pressure Location Lt brachial Position Sitting Pulse 61 Intake Visit Reasons: nausea Intake Note: Patient new consult for nauseas Patient cc: Nauseas, fulliness, fatigue, and some weight lost, denies any other GI issues. Patient is with Low Blood pressure. Funeral Home Location Manager Required: No Accompanied by: Self / Same As Patient Allergies No Known Allergies Allergy (Verified 10/10/25 14:39) Medication List - Last Reconciled 10/10/25 by Beena Murrell CNP amoxicillin-pot clavulanate 875-125 mg 1 tab PO BID ibuprofen 400 mg PO Q8H PRN lamotrigine 200 mg PO BID lamotrigine 25 mg PO DAILY lurasidone 60 mg PO DAILY HPI HPI nausea: Details: Patient is a 65-year-old female with PMH of bipolar. Referred by PCP for further evaluation of nausea. She reports nausea has been ongoing for approximately 6 months. She reports associated symptoms of decreased appetite and a feeling of fullness, even on an empty stomach. She has experienced a slight, unintentional weight loss over the past six months, noticed on the scale. She reports a burning sensation in her chest about once a day, which resolves on its own, and rare regurgitation, which has occurred twice in the last six months. She denies vomiting, dysphagia, or abdominal pain. Her bowel movements are daily, and she denies any blood in the stool. For her nausea, she has tried Tums without relief and notes that shashi benoit helps slightly. A previous prescription for nausea was also ineffective. She reports no specific triggers for her symptoms. Her medications include bupropion, lamotrigine 425 mg daily, and lurasidone. She takes [id number] ibuprofen (400mg) for back pain approx three times/week. Her past medical history is negative for cancer and she still has her gallbladder. Her most recent Cologuard test in June was negative. Lab results from May showed no anemia and normal liver and kidney function, while vitamin B12, folate, and thyroid levels from January were also normal. Patient denies: fever/chills, vomiting, dysphasia, unintentional wt loss, ab pain or melena/hematochezia. Social hx: -denies ETOH use -denies recreational drug use -non-smoker - family hx as below -denies personal hx of CA -denies significant cardiopulmonary history -tolerated anesthesia in the past without difficulty. [facility] Medical History Tenosynovitis of left hand Surgical History History of augmentation of both breasts H/O abdominoplasty History of tonsillectomy and adenoidectomy H/O: hysterectomy Family History Mother CAD (coronary artery disease) Hx of CABG Father Brain aneurysm Stroke Maternal Grandmother Uterine cancer Paternal Grandfather Pacemaker Maternal Uncle OCD (obsessive compulsive disorder) Other Substance abuse Social History Housing: House Patient Tobacco Use Status: Never used Tobacco e-Cigarette/Vaping Use: Never Used service: No Current occupational status: employed 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 Current occupational exposures/hazards: No Cognitive needs: No Hearing needs: No Vision needs: Yes (needs glasses) Review of Systems Const Reports as per HPI ENT Reports as per HPI Card Reports as per HPI Resp Reports as per HPI GI Reports as per HPI Reports as per HPI Physical Exam Vital Signs: Last Vital Signs Pulse 61 10/10/25 14:47 BP 86/57 L 10/10/25 14:47 BMI result Body Mass Index 19.4 Const General: healthy appearing, no acute distress and well developed Nutritional Appearance: average body habitus Orientation/consciousness: patient oriented x3 HEENT Head: Yes normal to inspection, Yes normocephalic and Yes atraumatic Face and sinus: Yes normal facial exam Eyes General: appearance normal, both eyes and all related structures Neck Neck: Yes normal visual inspection Resp Effort & Inspection: normal respiratory effort, able to speak in complete sentences, no tracheal deviation and symmetric chest movement Cardio Jugular venous distension: no JVD GI Inspection: Yes normal to inspection and No distended Palpation (GI): Soft to palpation, not firm, nontender and No hepatosplenomegaly present Auscultation: normal bowel sounds Neuro General: patient oriented x3 Gait exam (Neuro): Normal gait present Psych Appearance: grossly normal Mental Status: mental status grossly normal Speech and movement: Normal speech and movement present Affect: normal affect Attitude: cooperative Thought process: Normal thought process present Thought content: Normal thought content present Insight: Good insight present (Psych) Judgement: Good judgement present (Psych) Assessment & Plan Assessment & Plan (1) Nausea: Code(s): R11.0 - Nausea Category: Medical Plan: The patient's symptoms of nausea, early satiety, and heartburn are being evaluated. - Differential diagnoses include atypical gastroesophageal reflux disease (GERD), gallbladder disease, and peptic ulcer disease (PUD). - An abdominal ultrasound will be ordered to assess the gallbladder. - An H. pylori breath test was ordered and will be performed today to rule out a bacterial cause for PUD. - If the H. pylori test is positive, will initiate quadruple therapy. - An upper GI series will be ordered to evaluate the esophagus, stomach, and small intestine for structural changes or signs of an ulcer. - An upper endoscopy may be considered if non-invasive tests are inconclusive and symptoms persist. - The patient was counseled to reduce or discontinue ibuprofen use due to the risk of stomach irritation and to consider Tylenol as an alternative for pain. - Follow-up will be arranged after test results are available. Plan Follow-up after imaging or sooner as needed Time: I spent a total of 30 minutes on the date of encounter which includes: Preparing to see the patient (reviewed previous documentation, test results and medical history) Performing a medically appropriate exam and/or evaluation Ordering medications, tests, and procedures Documenting clinical information in the health record Orders: Orders H Pylori Breath Test Today R11.0 - Nausea US abdomen complete Today R11.0 - Nausea FL upper GI small bowel Today R11.0 - Nausea Coding Level of Care Code New Pt New Pt Level 3 (37437) Patient Type New Diagnoses Nausea R11.0
[2025-10-10 14:47] VITALS: BP 86/57; PULSE 61; BMI 19.4
== END ==
LOC: HO.HGI 14:22
PROVIDERS: PCP Internal Medicine; Visit Provider Nurse Practitioner Family
DX: R11.0 Nausea (principal)
CPT/HCPCS: 99203